=== PATIENT | female | born 1955 | race Caucasian/White ===

== ENCOUNTER 2024-12-15 11:41 | Day surgery (SDC) | payer MEDICARE, SELFPAY ==
[2024-12-08 09:05] VITALS: BMI 21.7
--- NOTE | 2024-12-15 | PATH_ITS ---
[facility] Accession Number: [id number] No. of containers..02 Tissue . 01 Material submitted: . PART A: neck - BSI, RIGHT NECK MASS PART B: neck - RIGHT NECK MASS . 01 Diagnosis: A / B. RIGHT NECK MASS: Follicular lymphoma, classic type, see comment and microscopic description. . COMMENT: Concurrent flow cytometry study (specimen ID: [id number]) demonstrated a monoclonal B-cell population that was CD5 and CD10 negative with surface lambda light chain restriction (CD10 positive by immunostain). [facility] 12/21/2024 1046 Local . 01 Electronically signed: . Mohsen Powers MD, Pathologist NPI- [id number] . 01 Gross description: . A. Received in B-Plus fix with two patient identifiers and right neck mass, is a portion of han, rubbery soft tissue, 1.5 x 0.9 x 0.8 cm. The brown roughened surface consistent with external surface is inked blue while the han flat surface consistent with previously incised surfaces are inked yellow. Sectioning reveals a han, rubbery cut surface. Submitted entirely in A1. B. Received in formalin with two patient identifiers and right neck mass, is a han wedge of soft tissue, 1.3 x 0.9 x 0.8 cm. The brown surface consistent with external surface is inked green while the flat han surface consistent with incised areas are inked yellow. Sectioning reveals han soft cut surface. Submitted entirely in B1. . Also received with the specimen with two identifiers and right neck mass slides, are two dry slides in a cardboard container and two slides in reagent alcohol. Per Dr. Powers, the slides are held for possible additional studies. ([id number]) /[facility] 12/16/2024 1526 Local . 01 Microscopic: . Clinical History: 69-year-old female with history of follicular lymphoma. - Immunohistochemical stains were indicated with adequate controls and show expanded CD21+ follicular dendritic cell (CORRECTION) meshworks within follicles. Expanded germinal centers show no clear polarization or tingible body macrophages. - Immunohistochemical stains were indicated with adequate controls and show follicles with expanded CD21+ follicular dendritic cell (CORRECTION) meshworks. Follicles are filled with neoplastic lymphoid cells that are predominantly small centrocytes and few larger centroblasts, both positive for CD20, PAX-5, CD10 (variable intensity), BCL-6, and BCL-2; while negative for CD5, CD43, and Cyclin D1. Scattered neoplastic cells extend into interfollicular areas. The Ki-67 proliferation index is approximately 20-25% within neoplastic GCs. Background T-cells are mostly present outside the follicles and are highlighted by CD3 and CD5 in a similar fashion, as well as CD43 and BCL-2. - The overall immunomorphologic pattern is most consistent with follicular lymphoma, now termed Classic Follicular lymphoma by WHO classification of tumors (updated 5th edition). The proportion of centroblasts is less than 15 per high power field, consistent with low-grade (1-2) follicular lymphoma. Note that grading has recently been considered optional for classical follicular lymphoma as no statistically significant difference in clinical outcomes between grades 1, 2, and 3A patients have been identified in several studies. - As part of ongoing quality control director, select slides were reviewed by Dr. Diane Lopez who agrees with the interpretation. Technical Note: The immunohistochemical stains reported were performed at [facility] ([address], [facility] [address]). This test was developed, and the performance characteristics were validated by [facility]. It has not been cleared or approved by the Food and Drug Administration. . 01 Pathologist provided ICD-10: C82.90 . 01 CPT . 562959, W83177, 983983, [id number] Performed at: [address] [place] [address], [place], [place] [id number] MD Alex Arriaga MD Phone: [phone]
[2024-12-15 12:44] VITALS: BMI 21.8
[2024-12-15 13:04] VITALS: BP 146/91; PULSE 84; RESP 20; TEMP 37.1; O2SAT 99
[2024-12-15] MEDS: LACTATED RINGERS 1,000 ML 42 ML IV (13:04)
--- NOTE | 2024-12-15 13:08 | PM.PREOP ---
Pre-operative Note Interval Note History & Physical reviewed/Exam performed by Physician: Yes Changes to H&P: No
--- NOTE | 2024-12-15 13:09 | P.OP_ITS ---
Operative Date/Time/Diagnoses Date of procedure: 12/15/24 Time of procedure: 14:20 Pre-op diagnosis: Right level 2/3 neck mass, history of lymphoma Post-op diagnosis: same Procedure & Clinicians Procedure: Excision right deep cervical node, level 2/3 Same procedure as scheduled: Yes Indications: 69 year old with a right level 2/3 neck mass with history of lymphoma, FNA inconclusive, presents for the above procedure. Following discussion of the material risks benefits complications and alternatives, the patient elected to proceed. Surgeon: Herberth Vasquez Click Yes if Unassisted: Yes Anesthesia Type: General and Local Operative Notes Findings: 2 cm well-circumscribed mass, deep to platysma, anterior and partially deep to the superior SCM, adjacent to external jugular vein and intact greater auricular nerve, not lysed Specimen(s): other (Right level 2/3 neck mass, sent for lymphoma protocol) Estimated Blood Loss (mL): 2 Procedure in detail: Following identification and confirmation of consent as well as the RIGHT operative side, patient was brought to the operating room suite and placed in the supine position. General endotracheal anesthesia was administered the table was turned right side out with the head turned to the left and shoulder roll placed. A proposed incision was marked in ink 2 fingerbreadths inferior to the mandible and along the inferior border of the palpable mass, approximately 3 cm in length and infiltrated with 1% lidocaine 1 100,000 epinephrine. Following s terile prep and drape, a 15 blade incised the skin, subcutaneous tissue, and platysma and sharp and blunt dissection proceeded down to the mass. The mass was bluntly and sharply dissected and removed in 1 piece with minimal hemostasis via bipolar cautery. The wound was irrigated with saline. The deep subcutaneous tissue and superficial dermis was closed with interrupted 4-0 chromic, followed by running 5 0 nylon to the skin. Antibiotic ointment and dressing placed. Sponge and needle counts were correct and she was extubated in the operating room and taken recovery room in stable condition without known complication. Complications: none Post-operative Condition: stable Disposition: same day surgery Plan for aftercare: Vaseline to the incision all times, ice and pressure as needed for the 1st 24-48 hours, follow-up in 1 week for suture removal. Tylenol alternating with Advil for pain control as needed.
[2024-12-15] MEDS: LIDOCAINE 1% W/EPI 20ML 20 ML INJ (13:42)
--- NOTE | 2024-12-15 13:44 | SUR.OPER ---
Supine on padded OR bed, head on pillow, left arm secured on padded arm boards at <90 degrees abduction, Right arm padded and tucked, legs uncrossed, safety belt at thigh, tape over blanket over lower legs.
[2024-12-15] MEDS: BACITRACIN OINT 0.9 GM PCKT 1 APPLIC TOP (14:17)
[2024-12-15 14:33] VITALS: BP 143/70; PULSE 96; RESP 12; TEMP 36.2; O2SAT 98
[2024-12-15 14:38] VITALS: BP 145/88; PULSE 86; RESP 12; TEMP 36.2; O2SAT 96
[2024-12-15 14:42] VITALS: BP 135/88; PULSE 85; RESP 15; TEMP 36.2; O2SAT 96
== END 2024-12-15 15:11 | disposition home or self-care (01) ==
PROVIDERS: PCP Physician Assistant Medical; Referring Provider Otolaryngology; Visit Provider Otolaryngology
PROC: 0HB1XZZ Excision of Face Skin, External Approach (ICD-10-PCS; CPT 38510; principal; 2024-12-15 13:15)
DX: C82.91 Follicular lymphoma, unspecified, lymph nodes of head, face, and neck (principal); F17.210 Nicotine dependence, cigarettes, uncomplicated
CPT/HCPCS: 38510; J1100; J2250; J2405; J2704; J3010